=== PATIENT | female | born 1975 | race Hispanic/Latino ===

== ENCOUNTER 2021-09-28 03:44 | Emergency (ER) | payer OTHER ==
[~2021-09-28] VITALS: Ht 144.8 cm; Wt 69.9 kg
[2021-09-28] MEDS ORDERED: CLEOCIN HCL300 MG PO (04:08)
[2021-09-28] MEDS ORDERED: KETOROLAC TROMETHAMINE 30 MG/ML VIAL IM STA (04:09)
[2021-09-28] MEDS ORDERED: ACETAMINOPHEN 325 MG TAB PO ONE (04:15)
[2021-09-28] MEDS ORDERED: KETOROLAC TROMETHAMINE 30 MG/ML VIAL ONE (04:18)
[2021-09-28] MEDS ORDERED: ACETAMINOPHEN 325 MG TAB ONE (04:18)
== END 2021-09-28 04:20 | disposition home or self-care (01) ==
LOC: ER 03:50
DX: K08.89 Other specified disorders of teeth and supporting structures (principal); K02.9 Dental caries, unspecified
CPT/HCPCS: 99282; J1885